=== PATIENT | male | born 1995 | race Asian ===

== ENCOUNTER 2020-12-25 15:56 | Outpatient (REF) | payer OTHER, SELFPAY ==
[2020-12-26 04:16] LABS: HIV AB/AG Nonreactive (Nonreactive); HIV Num 1 0.06 S/CO (0.00-0.99)
== END 2020-12-25 15:57 | disposition home or self-care (01) ==
LOC: HO.MANLDS 15:56
PROVIDERS: PCP Physician Assistant; Visit Provider Physician Assistant
DX: Z11.3 Encounter for screening for infections with a predominantly sexual mode of transmission (principal)
CPT/HCPCS: 36415; 87389